=== PATIENT | female | born 1990 | race Caucasian/White ===

== ENCOUNTER 2018-09-13 07:20 | Inpatient (IN) | payer MEDICAID ==
[2018-09-13] MEDS ORDERED: Sodium Citrate/Citric Acid 15 ml Sol PO ONE (08:30)
[2018-09-13] MEDS ORDERED: cefOXitin IV 2 gm in Dextrose 2 GM/50 ML BAG IVPB ONE ×2 (08:30→10:33)
[2018-09-13] MEDS ORDERED: Lactated Ringer's 1,000 ML IV ONE (08:30)
--- NOTE | 2018-09-13 09:24 | OBHP ---
Datetime: 09/13/2018 08:24 IP Adm Impression: Term, intrauterine IP Admit Plan: Admit to unit; Initiate Section protocol Admit Comment, IP Provider: Patient is a 28 year old who presents for a scheduled cesarian s ection. Patient's LMP 12/04/17 and estimated date of delivery 09/13/18. Patient says she noticed "a lit tle" fluid leakage at 9:30pm last night. She admits to feeling movements, and denies vaginal bl eeding and feeling contractions. She has no complaints today and feels well. She has a history of gen ital herpes and has been taking Acyclovir since 36 weeks . She did not take acyclovir this mo rning. She also has been taking her prenatals. The patient was diagnosed with gestial diabetes during this . She did not have GDM during her first full term . PMHx: GDM SurgHx: Cesarian section 2013 FamHx: none SocHx: denies tobacco, alcohol, and drug use Allergies: NKDA Medications: Acyclovir, vitamins Pelvic Type - PN: Adequate Extremities - PN: Normal Abdomen - PN: Normal Back - PN: Normal Breast - PN: Normal Lungs - PN: Normal Heart - PN: Normal Thyroid - PN: Normal Neurologic - PN: Normal HEENT - PN: Normal General - PN: Normal Comments, ACOG Physical Exam: Gen: in no acute distress Heart: RRR, no murmurs ausculatated Lungs: CTA b/l Abd/Pelv: well-healed suprapubic transverse scar s/p c/s Ext: 1+ pitting edema, no calf tenderness (Annotations: Data stored by CP[facility] on behalf of user) IP Hx Assessment: The History has been Reviewed and is Current EGA AdmitDate IP: 39.2 IP Indication for Induction: Not Applicable IP Chief Complaint: Scheduled Section Genitourinary Exam: Normal DTRs - PN: Normal
[2018-09-13 10:12] LABS: BASO # 0.1 K/uL (0.0-0.2); EOS % 0.1 % (0.0-4.0); LYMPH % 19.8 % (20.0-40.0); MEAN CORPUSCULAR HEMOGLOBIN 30.8 pg (27.0-31.0); MEAN CORPUSCULAR HGB CONC 33.4 g/dL (33.0-37.0); MEAN PLATELET VOLUME 10.8 fL (7.2-11.7); MONO # 0.7 K/uL (0.0-0.8); MONO % 6.8 % (0.0-10.0); NEUT # 7.1 K/uL (1.8-7.0); NEUT % 72.3 % (50.0-75.0); RBC 4.74 Mil/uL (3.80-5.20); RED CELL DISTRIBUTION WIDTH 14.3 % (11.5-14.5); WHITE BLOOD COUNT 9.9 K/uL (4.8-10.8)
[2018-09-13 10:15] LABS: HEMOGLOBIN 14.6 g/dL (11.0-16.0); MEAN CELL VOLUME 92.4 fL (81.0-99.0)
[2018-09-13 10:24] LABS: SQUAMOUS EPITHIAL 14 /hpf (0-5); URINE BILIRUBIN NEGATIVE (NEGATIVE); URINE BLOOD NEGATIVE (NEGATIVE); URINE CLARITY Hazy (Clear); URINE COLOR Yellow (YELLOW); URINE GLUCOSE (UA) NORMAL (Normal); URINE LEUKOCYTE ESTERASE 1+ Leu/uL (Negative); URINE PROTEIN NEGATIVE (NEGATIVE); URINE UROBILINOGEN NORMAL mg/dL (0.2-1.0)
[2018-09-13 10:29] LABS: ALB/GLOB RATIO 1.2 (1.0-2.1); ALBUMIN 4.3 g/dL (3.5-5.0); BLOOD UREA NITROGEN 13 mg/dL (7-17); CALCIUM 9.3 mg/dl (8.6-10.4); GFR NON-AFRICAN AMERICAN > 60
[2018-09-13 10:32] LABS: ALT/SGPT 18 U/L (9-52); AST/SGOT 35 U/L (14-36)
[2018-09-13] MEDS ORDERED: Oxytocin 20 units in LR 2,000 ML IV ONE (10:33)
[2018-09-13] MEDS ORDERED: DiphenhydrAMINE 50 mg/ml Inj IVP PRN (10:48)
[2018-09-13] MEDS ORDERED: Morphine 1 mg/ml preservative-free Inj(Duramorph) ONE (11:05)
[2018-09-13] MEDS ORDERED: EPINEPHrine 1 mg/ml (1:1000) Inj ONE (11:13)
[2018-09-13] MEDS ORDERED: Oxycodone/Acetaminophen 5/325 mg Tab PO PRN (11:30)
[2018-09-13] MEDS ORDERED: Oxytocin 10 Units/ml Inj ONE (11:43)
[2018-09-13] MEDS ORDERED: Naloxone 0.4 mg/ml Inj (Adult) IVP PRN (12:00)
[2018-09-13] MEDS: Simethicone 80 mg Chewtab PO SCH (22:14)
[2018-09-14 08:04] LABS: HEMOGLOBIN 13.8 g/dL (11.0-16.0); MEAN CELL VOLUME 92.3 fL (81.0-99.0); MEAN CORPUSCULAR HEMOGLOBIN 31.1 pg (27.0-31.0); MEAN CORPUSCULAR HGB CONC 33.7 g/dL (33.0-37.0); MEAN PLATELET VOLUME 10.2 fL (7.2-11.7); RBC 4.42 Mil/uL (3.80-5.20); RED CELL DISTRIBUTION WIDTH 14.4 % (11.5-14.5)
[2018-09-14] MEDS: Oxycodone/Acetaminophen 5/325 mg Tab PO PRN ×2 (10:47→23:49)
[2018-09-14] MEDS: Prenatal Multivit/Folic Acid/Iron Tab PO SCH (10:48)
[2018-09-14] MEDS: Simethicone 80 mg Chewtab PO SCH ×4 (10:50→21:48)
[2018-09-14] MEDS ORDERED: Bisacodyl 5mg EC Tab PO ONE (11:30)
--- NOTE | 2018-09-14 15:56 | OBPPN ---
Datetime: 09/14/2018 07:02 PP Pain Prov: Within normal limits PP Nausea Prov: Denies PP Flatus Prov: Yes PP BM Prov: No PP Breasts Prov: Normal PP Heart Prov: Normal PP Lungs Prov: Normal PP Abdomen/Uterus Prov: Normal PP Lochia Prov: Normal PP Vulva/Perineum Prov: Not Done PP CVA Tenderness Prov: Normal PP Extremities Prov: Normal PP C/S Incision Prov: Normal PP Progress Prov: Normal PP Comments Phys Exam Prov: Gen: AAOx3 in NAD, mother at bedside Lungs: CTABL Cardio: RRR, no murmurs appreciated Abd: soft, appropriately tender in lower abdomen. Fundus 1 fingerbreadth above umbilicus incision clear, intact and dry. with steristrips overlying. Ext: no calf tenderness PP Impression Prov: Normal progression PP Plan Prov: Continue present management PP Progress Note Prov: Patient seen and examined at bedside. Patietn complains of mild tenderness, w ell controlled with Motrin, Toradol, and Percocet. Ambulating in room without issue. Feeding baby bot h on breast and supplementing with formula as patient does not believe she is producing enough. Moder ate amount of lochia reported. No nausea or vomiting. Denies calf tenderness, chest pain, palpitation s, shortness of breath and fevers and chills. Patient does not want circumcision for baby. 28 F POD#1 s/p planned repeat 1. Stable. Pain control 2. Follow up AM labs 3. Encouraged , ambulation 4. Rivas catheter removed. Monitor urine output. 5. F/U control plans Patient seen and plan approved by Dr. Starr. Kashmir Brewster, PGY-1 Attending Note: patient seen and evaluated by me with the Resident. I agree withthe above. Since t hat initial evaluation, patient continues to ambulate and has voided spontaneously. Dressing removed - incision with angel is clean, dry and intact. POD#1 H/H 13.8/40.8. Rh(+). Patient is clinically stable. Plan: 1) As above. 2) Continue post / post opeartive care Vital Signs Provider PP: Reviewed
[2018-09-15] MEDS: Prenatal Multivit/Folic Acid/Iron Tab PO SCH (09:01)
[2018-09-15] MEDS: Simethicone 80 mg Chewtab PO SCH ×4 (09:02→21:43)
[2018-09-15] MEDS: Oxycodone/Acetaminophen 5/325 mg Tab PO PRN ×2 (13:40→21:42)
--- NOTE | 2018-09-15 21:40 | OBPPN ---
Datetime: 09/15/2018 06:42 PP Pain Prov: Within normal limits PP Nausea Prov: Denies PP Flatus Prov: Yes PP BM Prov: Yes PP Heart Prov: Normal PP Lungs Prov: Normal PP Abdomen/Uterus Prov: Normal PP Lochia Prov: Normal PP Comments Phys Exam Prov: Gen: AAOx3 in NAD, mother at bedside Lungs: CTABL Cardio: RRR, no murmurs appreciated Abd: soft, appropriately tender in lower abdomen. Fundus remains 1 fingerbreadth above umbilicus, mainly on R side incision clear, intact and dry. with angel. No erythema noted. Ext: no calf tenderness PP Impression Prov: Normal progression PP Plan Prov: Continue present management PP Progress Note Prov: Patient seen and examined at bedside. Patient complains of increased tenderne ss that required Percocet. Ambulating in room without issue. Feeding baby both on breast and suppleme nting with formula as patient does not believe she is producing enough milk. Moderate amount of lochi a reported. No nausea or vomiting. Denies calf tenderness, chest pain, palpitations, shortness of kylie ath, fevers and chills. Patient does not want circumcision for baby at this time. 28 F POD#2 s/p planned repeat of liveborn male. H/H 13.8/40.8 yesterday. Rh(+). 1. Stable. Pain control. 2. Tolerating diet 3. Encouraged , ambulation and increase po water intake 4. Rivas catheter removed. Monitor urine output. 5. F/U control plans discussed but unsure Kashmir Brewster, PGY-1 Pt seen and examined with Dr. Brewster and his POC reviewed with him and all of his wuestions were answered. I ageed with his assessment and POC. Vital Signs Provider PP: Reviewed; Within Normal Limits
[2018-09-16 09:08] VITALS: BP 113/67; RESP 18
[2018-09-16] MEDS: Simethicone 80 mg Chewtab PO SCH ×3 (10:02→14:14)
[2018-09-16] MEDS: Prenatal Multivit/Folic Acid/Iron Tab PO SCH (14:13)
--- NOTE | 2018-09-16 17:12 | OBPPN ---
Datetime: 09/16/2018 06:46 PP Pain Prov: Within normal limits PP Nausea Prov: Denies PP Flatus Prov: Yes PP BM Prov: No PP Heart Prov: Normal PP Lungs Prov: Normal PP Abdomen/Uterus Prov: Normal PP Lochia Prov: Normal PP CVA Tenderness Prov: Normal PP Extremities Prov: Normal PP C/S Incision Prov: Normal PP Progress Prov: Normal PP Comments Phys Exam Prov: Gen: AAOx3 in NAD, mother at bedside Lungs: CTABL Cardio: RRR, no murmurs appreciated Abd: soft, appropriately tender in lower abdomen. Fundus 1 fingerbreadth below umbilicus. incision clear, intact and dry, with angel. No erythema noted. Ext: no calf tenderness PP Impression Prov: Normal progression PP Plan Prov: Continue present management PP Progress Note Prov: Patient seen and examined at bedside. Patient complains of abdominal tenderne ss that required Percocet overnight. Ambulating in room without issue. Feeding baby both on breast an d supplementing with formula as patient does not believe she is producing enough milk. Moderate amoun t of lochia reported. No nausea or vomiting. Denies calf tenderness, chest pain, palpitations, shortn ess of breath, fevers and chills. Patient does not want circumcision for baby. 28 F POD#3 s/p planned repeat of liveborn male. H/H 13.8/40.8 on most recent lab . Rh(+). 1. Discharge planning with appropriate followup in 7-10 days or prn. 2. Tolerating diet. 3. Encouraged , ambulation and increase po water intake 4. Monitor urine output and BM. 5. control plans with her choice for intrauterine device upon clinic follow-up 6. Advised to pelvic rest x 6-8 weeks 7. Advised to continue PNV daily x 4-5 months D/C home in Stable and Satisfactory condition and recovery and with Rx's for Percocet, Motrin and Colace Kashmir Brewster, PGY-1 Pt seen and examined with Dr. Brewster and reviewed and discussed with him his findings and his POC and agreed. Vital Signs Provider PP: Reviewed; Within Normal Limits
--- NOTE | 2018-09-16 17:19 | OBDCSUM ---
Datetime: 09/16/2018 12:00 Discharged to, Provider: Home Follow up at, Provider: Clinic Disch Instr Activity: Normal activity Disch Instr Diet: Regular Discharge Instructions, Provider: Routine instructions given Discharge Diagnosis, Provider: Term Delivered Discharge Time: 09/16/2018 12:00 Follow up in weeks, Provider: 5-7 days Disch Referrals: None Contraception discussed, Prov: Yes Disch Activity Restrictions: No exercising; No lifting; Minimize stair-climbing; No sexual activity; Nothing in vagina - [place], tampons, douche Discharge Comment, Provider: Patient seen and examined at bedside. Patient complains of abdominal te nderness that required Percocet overnight. Ambulating in room without issue. Feeding baby both on kylie ast and supplementing with formula as patient does not believe she is producing enough milk. Moderate amount of lochia reported. No nausea or vomiting. Denies calf tenderness, chest pain, palpitations, shortness of breath, fevers and chills. Patient does not want circumcision for baby. 28 F POD#3 s/p planned repeat of liveborn male. H/H 13.8/40.8 on most recent lab . Rh(+). 1. Discharge planning with appropriate followup in 7-10 days or prn. 2. Tolerating diet. 3. Encouraged , ambulation and increase po water intake 4. Monitor urine output and BM. 5. control plans with her choice for intrauterine device upon clinic follow-up 6. Advised to pelvic rest x 6-8 weeks 7. Advised to continue PNV daily x 4-5 months D/C home in Stable and Satisfactory condition and recovery and with Rx's for Percocet, Motrin and Colace Kashmir Brewster, PGY-1 Pt seen and examined with Dr. Brewster and reviewed and discussed with him his findings and his POC and agreed. Contraception after Delivery: Undecided Datetime: 09/16/2018 08:25 Discharged to, Provider: Home Follow up at, Provider: [facility] Disch Instr Activity: Normal activity; May Shower Disch Instr Diet: Regular Discharge Diagnosis, Provider: Term Delivered Discharge Time: 09/16/2018 12:00 Follow up in weeks, Provider: Aug Disch Referrals: None Disch Activity Restrictions: No exercising; No lifting; No driving; Minimize walking; Minimize stair -climbing; No sexual activity; Nothing in vagina - [place], tampons, douche
[2018-09-16 22:18] VITALS: PULSE 63; TEMP 99; O2SAT 98
--- NOTE | 2018-09-22 17:30 | OBDS ---
DELIVERY PERSONNEL Delivery Doctor: Mireya Crawford MD Scrub Nurse: Clair Rodríguez OBT Chalk Molding Machine Operator: Charlene Abebe RN Anesthesiologist: Marlon Lopez MD MATERNAL INFORMATION Delivery Anesthesia: Spinal Medications in Delivery: oxytocin Estimated Blood Loss (ml): 800 Placenta Cultured: Yes Maternal Complications: None RN Comments: Delivery of a life Baby Boy, 9,9 Provider Comments: baby deliverd innloa end clean 9/9 cord ph se LABOR SUMMARY EDC: 09/18/2018 00:00 No. Babies in Womb: 1 (Annotations: Data stored by [facility] on behalf of user) Attempted: No Labor Anesthesia: None LABOR INFORMATION Reason for Induction: Not Applicable Reason for Induction Other: n/a Group B Beta Strep: Negative Antibiotics # of Doses: 1 Antibiotics Time of Last Dose: 1040 Steroids Given: None Reason Steroids Not Administered: Not Applicable Other Reason Not Administered: n/a MEMBRANES Membranes Rupture Method: Artificial Rupture of Membranes: 09/13/2018 11:34 Length of Rupture (hrs): 0.03 Amniotic Fluid Color: Light Meconium Amniotic Fluid Amount: Moderate Amniotic Fluid Odor: None STAGES OF LABOR Stage 3 hrs: 0 Stage 3 min: 1 VAGINAL DELIVERY Episiotomy: None Laceration Extension: N/A Other Laceration: none Laceration Repair: Not Applicable Initial Vag Sponge Count: 25 Final Vag Sponge Count: 25 Initial Vag Sharps Count: 7 Final Vag Sharps Count: 8 Sponge Count Correct: Yes Sharps Count Correct: Yes Count Comment: correct CSECTION DELIVERY Primary Indication: Repeat Elective Other Primary Indication: Herpies CSection Urgency: Non Elective CSection Incision: Lower Uterine Transverse BABY A INFORMATION Infant Delivery Date/Time: 09/13/2018 11:36 Method of Delivery: Born in Route : No : N/A Forceps: N/A Vacuum Extraction: N/A Shoulder Dystocia : No ASSISTED DELIVERY BABY A Vacuum/Forceps Comment: none SHOULDER DYSTOCIA BABY A Infant Delivery Date/Time: 09/13/2018 11:36 PRESENTATION/POSITION BABY A Presentation: Cephalic Cephalic Presentation: Vertex Vertex Position: Left Occipital Anterior Breech Presentation: N/A PLACENTA INFORMATION BABY A Placenta Delivery Time : 09/13/2018 11:37 Placenta Method of Delivery: Manual Removal Placenta Status: Delivered SCORES BABY A Heart Rate 1 min: >100 bpm Resp Effort 1 min: Good Cry Reflex Irritability 1 min: Cough or Sneeze or Pulls Away Muscle Tone 1 min: Active Motion Color 1 min: Body Landmark, Extremities Blue SCORE 1 MIN: 9 Heart Rate 5 min: >100 bpm Resp Effort 5 min: Good Cry Reflex Irritability 5 min: Cough or Sneeze or Pulls Away Muscle Tone 5 min: Active Motion Color 5 min: Body Landmark, Extremities Blue SCORE 5 MIN: 9 INFANT INFORMATION BABY A Gestational Age at Delivery: 39.2 Gestational Status: Term Outcome : Liveborn Condition : Stable Sex: Male IDENTIFICATION/MEDS BABY A ID Band Number: [id number] ID Band Location: Left Leg; Left Arm Sensor Applied: Yes Sensor Number: [id number] Sensor Location : Cord Clamp Vitamin K Given : Not Given Erythromycin Given: Not Given WEIGHT/LENGTH BABY A Birthweight (gms): 3675 Infant Weight (lb): 8 Infant Weight (oz): 2 Length Inches: 20.75 Length cms: 52.7 CORD INFORMATION BABY A No. Cord Vessels: 3 Nuchal Cord : N/A Nuchal Cord Other: none True Knot: none Infant Cord pH Baby Arterial: 7.33 Infant Cord pH Baby Venous: 7.33 Cord Blood Taken: Yes Infant Suction: None; Mouth ASSESSMENT BABY A Complications: Meconium Physical Findings at Delivery: Within Normal Limits Infant Respirations: Appears Normal Clinical Informatics Spec/ALS Called : No Care By: Dr Dunn
--- NOTE | 2018-09-23 02:26 | OP ---
PROCEDURE DATE: 09/13/2018 PREOPERATIVE DIAGNOSIS: A 28-year-old 2, para 1 with scheduled previous section, gestational diabetic, 39 weeks. POSTOPERATIVE DIAGNOSIS: A 28-year-old 2, para 1 with scheduled previous section, gestational diabetic, 39 weeks. SURGEON: Shravan Crawford MD FURNACE CONVERTER: Nadeem Kyle MD ANESTHESIA: Spinal. ANESTHESIOLOGIST: Davion Lopez MD PROCEDURE PERFORMED: Repeat section. DESCRIPTION OF PROCEDURE: After informed consent was obtained, the patient was brought to the operating room, placed on the table where spinal anesthesia was given. Once the anesthesia was given, the patient was prepped and draped in a normal sterile fashion. A Rivas catheter was inserted under sterile condition. At the site of the previous skin incision, incision was made with a knife; the subcutaneous cut with a Bovie. The fascia was excised on both the sides using curved Montes scissors. The fascia was from site of umbilicus and then at the site of the rectus muscles. Rectus muscle was , peritoneum was lifted up with 2 Allis, it was cut with Metzenbaum scissors and we went into the abdominal cavity. A bladder blade was placed. Bladder flap was created. The lower uterine segment incision was made with a knife. It was extended using Bovie and curved Montes scissors. Baby delivered in a BECCA position. Cord was clamped and cut. Baby was handed to the awaiting performance tester. After that, placenta delivered manually and sent off for pathology. Uterus was exteriorized and cleared of all clots and debris. Uterine incision was closed using #1 Vicryl in running interlocking fashion. Second layer was closed with the same stitch. The cul-de-sac was cleared of all the clots and debris. Uterus was returned back to the abdominal cavity. After that, gutters were cleared of all the clots and debris. After that, the peritoneum was closed using 2-0 Vicryl in running interlocking fashion. The muscle was closed using 2-0 Vicryl in running interlocking fashion. Fascia was closed using #1 Vicryl in running interlocking fashion. Subcutaneous tissue was closed with 0 Vicryl in interrupted fashion. Skin was closed using angel. The patient tolerated the procedure well. Lap, sponge, and instrument counts were correct x2. Shravan Crawford MD [facility] # [id number]
== END 2018-09-16 16:30 | disposition home or self-care (01) | DRG 651 ==
LOC: C.EROB 07:20 → C.4D 07:46 → C.4M 16:59
PROVIDERS: ADMIT Obstetrics & Gynecology; ATTEND Obstetrics & Gynecology
PROC: 10D00Z1 Extraction of Products of Conception, Low, Open Approach (ICD-10-PCS; principal; 2018-09-13)
DX: O24.420 Gestational diabetes mellitus in childbirth, diet controlled (principal); O77.0 Labor and delivery complicated by meconium in amniotic fluid; O34.211 Maternal care for low transverse scar from previous cesarean delivery; Z3A.39 39 weeks gestation of pregnancy; Z37.0 Single live birth; O98.52 Other viral diseases complicating childbirth; A60.00 Herpesviral infection of urogenital system, unspecified